=== PATIENT | female | born 1980 | race Caucasian/White ===

== ENCOUNTER 2020-11-01 00:21 | Emergency (ER) | payer OTHER ==
[2020-11-01 01:28] LABS: ANION GAP 14.6 mEq/L (7-13); CHLORIDE,CL 104 mmol/L (98-107); SODIUM,NA 140 mmol/L (136-145)
--- NOTE | 2020-11-01 01:46 | EDM.PDOC ---
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 States 14 weeks with IVF. Prior normal ultrasounds. Tonight after voiding, noted vaginal presssure "like tampon stuck". Stated felt in vaginal vault and felt cervix lowe than usual when using progesterone suppositories and felt "conical object. Last use of progesterone october 06. 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 Denied vaginal discharge, cramping or bleeding. 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 ED EXAM - Physical Exam Exam: See Below Exam Limited By: No Limitations General Appearance: Alert, Anxious Eye Exam: Bilateral Eye: EOMI Ears: Normal External Exam, Hearing Grossly Normal Nose: Normal Inspection Head: Atraumatic, Normocephalic Neck: Normal Inspection Respiratory/Chest: No Respiratory Distress, Lungs Clear, Normal Breath Sounds Cardiovascular: Normal Peripheral Pulses, Regular Rate, Rhythm (Female) Exam: Other (cervix not adequately visualized. Low in vaginal vault. No blood noted.). No: Vaginal Discharge Extremities: Normal Inspection Neurological: Alert, Oriented, Normal Cognition Skin Exam: Warm, Dry, Intact, Normal Color Course - Vital Signs Last Recorded V/S: Last Vital Signs Temp 97.3 F 11/01/20 03:55 Pulse 72 11/01/20 03:55 Resp 18 11/01/20 03:55 BP 122/87 07/15/21 03:55 Pulse Ox 99 11/01/20 03:55 - Orders/Labs/Meds Labs: Laboratory Tests 11/01/20 11/01/20 11/01/20 Range/Units 01:02 01:02 01:02 WBC 9.0 (5.0-10.0) 10^3/uL RBC 4.13 L (4.2-5.4) 10^6/uL Hgb 12.7 (12.0-16.0) g/dL Hct 36.6 L (37.0-47.0) % MCV 88.6 (80-100) fL MCH 30.8 (27.0-34.0) pg MCHC 34.7 (33.0-35.0) g/dL Plt Count 315 (150-450) 10^3/uL Neut % (Auto) 59.7 (42.2-75.2) % Lymph % (Auto) 29.0 (20.5-50.1) % [place] % (Auto) 9.9 H (2-8) % Eos % (Auto) 1.1 (1.0-3.0) % Baso % (Auto) 0.3 (0.0-1.0) % Sodium 140 (136-145) mmol/L Potassium 3.6 (3.5-5.1) mmol/L Chloride 104 (98-107) mmol/L Carbon Dioxide 25 (21-32) mmol/L Anion Gap 14.6 H (7-13) mEq/L BUN 5 L (7-18) mg/dL Creatinine 0.64 (0.55-1.02) mg/dL Est Cr Clr Drug Dosing TNP Estimated GFR (MDRD) > 60 BUN/Creatinine Ratio 7.8 (No establ ref range) Glucose 94 (70-99) mg/dL Calcium 8.6 (8.5-10.1) mg/dL Total Bilirubin 0.3 (0.2-1.0) mg/dL AST 27 (15-37) U/L ALT 42 (14-59) U/L Alkaline Phosphatase 40 L (46-116) U/L Total Protein 6.7 (6.4-8.2) g/dL Albumin 3.0 L (3.4-5.0) g/dL Globulin 3.7 Albumin/Globulin Ratio 0.81 HCG, Quant 61916 H (0-6) mIU/mL Urine Color (YELLOW) Urine Appearance (CLEAR) Urine pH (5.0-9.0) Ur Specific [place] (1.005-1.030) Urine Protein (NEGATIVE) Urine Glucose (UA) (NEGATIVE) Urine Ketones (NEGATIVE) Urine Occult Blood (NEGATIVE) Urine Nitrite (NEGATIVE) Urine Bilirubin (NEGATIVE) Urine Urobilinogen (0.2-1.0) mg/dL Ur Leukocyte Esterase (NEGATIVE) 11/01/20 Range/Units 01:21 WBC (5.0-10.0) 10^3/uL RBC (4.2-5.4) 10^6/uL Hgb (12.0-16.0) g/dL Hct (37.0-47.0) % MCV (80-100) fL MCH (27.0-34.0) pg MCHC (33.0-35.0) g/dL Plt Count (150-450) 10^3/uL Neut % (Auto) (42.2-75.2) % Lymph % (Auto) (20.5-50.1) % [place] % (Auto) (2-8) % Eos % (Auto) (1.0-3.0) % Baso % (Auto) (0.0-1.0) % Sodium (136-145) mmol/L Potassium (3.5-5.1) mmol/L Chloride (98-107) mmol/L Carbon Dioxide (21-32) mmol/L Anion Gap (7-13) mEq/L BUN (7-18) mg/dL Creatinine (0.55-1.02) mg/dL Est Cr Clr Drug Dosing Estimated GFR (MDRD) BUN/Creatinine Ratio (No establ ref range) Glucose (70-99) mg/dL Calcium (8.5-10.1) mg/dL Total Bilirubin (0.2-1.0) mg/dL AST (15-37) U/L ALT (14-59) U/L Alkaline Phosphatase (46-116) U/L Total Protein (6.4-8.2) g/dL Albumin (3.4-5.0) g/dL Globulin Albumin/Globulin Ratio HCG, Quant (0-6) mIU/mL Urine Color Yellow (YELLOW) Urine Appearance Clear (CLEAR) Urine pH 7.0 (5.0-9.0) Ur Specific [place] 1.020 (1.005-1.030) Urine Protein Negative (NEGATIVE) Urine Glucose (UA) Negative (NEGATIVE) Urine Ketones Negative (NEGATIVE) Urine Occult Blood Negative (NEGATIVE) Urine Nitrite Negative (NEGATIVE) Urine Bilirubin Negative (NEGATIVE) Urine Urobilinogen 0.2 (0.2-1.0) mg/dL Ur Leukocyte Esterase Negative (NEGATIVE) Meds: Medications Discontinued Medications Generic Name Dose Route Start Last Admin Trade Name Marty PRN Reason Stop Dose Admin Acetaminophen 650 mg 11/01/20 03:06 11/01/20 03:10 Acetaminophen 325 Mg Tab PO 11/01/20 03:07 650 mg NOW ONE Administration - Re-Assessments/Exams Free Text/Narrative Re-Assessment/Exam: 11/01/20 06:[address] Goldman. US prior to exam if NML FHT and gestational sac and placent, then gentle pelvic exam. Results of plevic and US results discussed with patient, Recommendatio to rest today and follow in clinic. Departure - Departure Time of Disposition: 03:50 Disposition: Home, Self-Care 01 Condition: Good Clinical Impression: resulting from in vitro fertilization in second trimester, Cervical abnormality complicating - Discharge Information *PRESCRIPTION DRUG MONITORING PROGRAM REVIEWED*: No *COPY OF PRESCRIPTION DRUG MONITORING REPORT IN PATIENT BOBBY: No Instructions: Pelvic Pain, Female Referrals: PCP,None [Primary Care Provider] - Forms: ED Department Discharge Additional Instructions: rest follow up with primary OB this am recheck to day in clinic of choice Follow up if severe cramping or vaginal bleeding Sepsis Event Note (ED) - Evaluation Sepsis Screening Result: No Definite Risk - Focused Exam Vital Signs: Vital Signs Temp Pulse Resp BP Pulse Ox 11/01/20 03:55 97.3 F 72 18 122/87 99 11/01/20 03:07 75 18 125/85 100 11/01/20 00:24 97.6 F 87 18 133/96 H 98
[2020-11-01] MEDS ORDERED: Acetaminophen 325 MG Tab PO ONE (03:06)
--- NOTE | 2020-11-01 04:07 | US ---
PROCEDURE INFORMATION: Exam: US , Limited Exam date and time: 11/01/2020 1:05 AM Age: 40 years old Clinical indication: Lmp or gestational age (in weeks): 14 w 1 d; Other: Presssure in cervix area; ; Additional info: Cervix low, pressure TECHNIQUE: Imaging protocol: Real-time ultrasound of the maternal uterus with image documentation. Exam focused on the clinical indication. COMPARISON: No relevant prior studies available. FINDINGS: Gestation: Single living intrauterine gestation. No subchorionic hemorrhage. heart rate: 155 bpm. BIOMETRY: Gestational age (AUA): 14 weeks 1 day. Estimated due date (AUA): 05/09/2021. [place]-Rump length: [place]-rump length is 81 mm. MATERNAL: Cervix: Cervix is unremarkable. No cervical funneling. IMPRESSION: Single living intrauterine fetus with estimated gestational age of 14 weeks 1 day. No acute findings.
== END 2020-11-01 03:57 | disposition home or self-care (01) ==
LOC: DL.ED 00:21
DX: O34.42 Maternal care for other abnormalities of cervix, second trimester (principal); Z79.82 Long term (current) use of aspirin; Z3A.14 14 weeks gestation of pregnancy
CPT/HCPCS: 36415; 76815; 80053; 81003; 84702; 85025; 99284; A9270